=== PATIENT | female | born 1975 | race Caucasian/White ===

== ENCOUNTER 2022-07-29 13:34 | Inpatient (IN) | payer MEDICAID ==
[~2022-07-29] VITALS: Ht 162.6 cm; Wt 72.6 kg
[2022-07-29 13:39] VITALS: BP 140/90
--- NOTE | 2022-07-29 14:08 | NUR ---
AWAKE, ALERT X 4 ON ARRIVAL, EXPIRATORY WHEEZE ON AUSCULTATION. SPEAKS FULL SENTENCES
[2022-07-29 14:21] LABS: BASOPHILS # (AUTO) 0.1 K/uL (0.00-0.22); EOSINOPHILS # (AUTO) 1.4 K/uL (0-0.4); EOSINOPHILS % (AUTO) 14.8 % (0.0-4.0); HEMATOCRIT 42.2 % (36-48); HEMOGLOBIN 14.3 g/dL (12.0-16.0); LYMPHOCYTES # (AUTO) 3.6 K/uL (2.5-16.5); LYMPHOCYTES % (AUTO) 38.8 % (20.5-51.1); MEAN CORPUSCULAR HEMOGLOBIN 27 pg (27-31); MEAN CORPUSCULAR HGB CONC 34 g/dL (33-37); MEAN CORPUSCULAR VOLUME 81.1 fL (80-94); MONOCYTES # (AUTO) 0.4 K/uL (0.8-1.0); MONOCYTES % (AUTO) 4.8 % (1.7-9.3); NEUTROPHILS # (AUTO) 3.7 K/uL (1.8-7.7); NEUTROPHILS % (AUTO) 40.6 % (42.2-75.2); PLATELET COUNT (AUTO) 253 K/uL (140-450); WHITE BLOOD COUNT (AUTO) 9.2 K/uL (4.8-10.8)
[2022-07-29 14:35] LABS: ALBUMIN 4.4 g/dL (3.4-5.0); ANION GAP 16.7 (8-16); CARBON DIOXIDE 24.6 mmol/L (21-32); CREATININE 0.9 mg/dL (0.6-1.3); POTASSIUM 3.3 mmol/L (3.5-5.1); TOTAL BILIRUBIN 0.5 mg/dL (0.0-1.0)
[2022-07-29] MEDS ORDERED: methylPREDNISolone SS 125 MG/2 ML VIAL IVP ONE (14:40)
[2022-07-29] MEDS ORDERED: ALBUTEROL SULFATE/IPRATROPIU 3 ML SOL IH ONE ×2 (14:40→17:20)
--- NOTE | 2022-07-29 14:59 | NUR ---
PT WAS SENT TO [facility]ATH. URINE OBTAINED AND SENT TO LAB. PT WAS MEDICATED WITH SOLUMEDROL IVP. RT WAS CALLED TO BEDSIDE FOR BREATHING TX.
--- NOTE | 2022-07-29 16:44 | NUR ---
PT STATED FEELING MUCH BETTER AFTER BREATHING TX.
--- NOTE | 2022-07-29 17:38 | NUR ---
BREATHING TX ONE MORE TIME BEDSIDE.
[2022-07-29 19:10] LABS: APPEARANCE,URINE CLEAR (CLEAR); BILIRUBIN,URINE NEGATIVE (NEGATIVE); BLOOD, URINE TRACE-I (NEGATIVE); COLOR,URINE YELLOW (YELLOW); LEUKOCYTE ESTERASE ,URINE NEGATIVE (NEGATIVE); NITRITE, URINE NEGATIVE (NEGATIVE); PH,URINE 5.5 (5.0-9.0); UGLUCOSE NEGATIVE (NEGATIVE)
[2022-07-29] MEDS ORDERED: NACL 0.9% 2,000 ML IV ONE (19:15)
--- NOTE | 2022-07-29 19:30 | NUR ---
REPORT RECEIVED FROM OUTGOING RN FOR CONTINUITY OF CARE.
[2022-07-29 19:33] LABS: CALCIUM OXALATE CRYSTALS,UR 0-10 /HPF (None Seen)
[2022-07-29] MEDS ORDERED: cefTRIAXone 1,000 MG VIAL ONE (19:37)
--- NOTE | 2022-07-29 20:34 | NUR ---
REPORT GIVEN TO GLORIA WITT. PATIENT PENDING TRANSFER TO [facility]. ALL BELONGINGS SENT WITH PATIENT.
--- NOTE | 2022-07-29 20:40 | NUR ---
PT TRANSPORTED FROM ER VIA GURNEY. PT IS AAOX4. NOT IN ANY RESPIRATORY DISTRESS. ON RA SATING 94%. PT HAS LEFT HAND 20 GAUGE SALINE LOCK. PT DENIES ANY PAIN. EDUCATED PT FOAMING MACHINE OPERATOR LIGHT SYSTEM AND ROOM ENVIRONMENT. POC DISCUSSED. WILL CONTINUE TO MONITOR THE PT.
[2022-07-29 20:45] VITALS: BP 129/81
[2022-07-29] MEDS ORDERED: LORazepam 2 MG/ML VIAL IVP PRN (20:45)
[2022-07-29] MEDS ORDERED: POTASSIUM CHLORIDE 10 MEQ TABER PO PRN (20:45)
[2022-07-29] MEDS ORDERED: MAG SULF 2000 MG/WATER PREMIX 50 ML IV PRN (20:45)
[2022-07-29] MEDS ORDERED: DOCUSATE SODIUM 100 MG GELCAP PO PRN (20:45)
[2022-07-29] MEDS ORDERED: ONDANSETRON 4 MG/2 ML VIAL IVP PRN (20:45)
[2022-07-29] MEDS ORDERED: ALBUTEROL SULFATE/IPRATROPIU 3 ML SOL IH PRN (20:45)
[2022-07-29] MEDS ORDERED: MORPHINE SULFATE 2 MG/ML SYR IVP PRN (20:45)
[2022-07-29] MEDS: ZOLPIDEM 10 MG TAB PO PRN (21:51)
[2022-07-29] MEDS: ACETAMINOPHEN 325 MG TAB PO PRN (21:51)
[2022-07-29] MEDS: predniSONE 10 MG TAB PO SCH (21:51)
--- NOTE | 2022-07-29 21:51 | NUR ---
SCHEDULE MEDICATIONS GIVEN. PT COMPLAIN OF PINEDA, TYLENOL WAS GIVEN. PT WANTED SLEEP MED AND AMBIEN WAS GIVEN. K-DUR WAS GIVEN FOR LOW POTASSIUM. NO ADVERSE REACTION NOTED. WILL CONTINUE TO MONITOR THE PT.
--- NOTE | 2022-07-30 03:40 | NUR ---
VITAL SIGNS TAKEN AND STABLE. NOT IN ANY DISTRESS. PT HAS NO COMPLAINS AT THIS TIME. WILL CONTINUE TO MONITOR THE PT.
[2022-07-30 04:00] VITALS: BP 125/73
--- NOTE | 2022-07-30 07:15 | NUR ---
ENDORSED PT TO DAY SHIFT RN FOR CONTINUITY OF CARE. PT IS STABLE.
--- NOTE | 2022-07-30 07:15 | NUR ---
RECEIVED REPORT FROM NIGHTSHIFT NURSE NATALIE FOR CONTINUITY OF CARE. PT IN STABLE CONDITION, CURRENTLY SLEEPING, NO SIGNS OF PAIN OR DISTRESS NOTED AT THIS TIME.
--- NOTE | 2022-07-30 07:40 | NUR ---
RECEIVED CALL FROM LAB FOR CRITICAL LAB VALUE LACTIC ACID 3.4. NOTIFIED DR. SORTO, AWAITING ORDERS.
[2022-07-30 08:00] VITALS: BP 114/70
--- NOTE | 2022-07-30 08:00 | NUR ---
NO NEW ORDERS RECEIVED FOR LACTIC ACID 3.4.
[2022-07-30] MEDS: ACETAMINOPHEN 325 MG TAB PO PRN ×2 (08:25→15:55)
[2022-07-30] MEDS: predniSONE 10 MG TAB PO SCH (08:25)
--- NOTE | 2022-07-30 08:25 | NUR ---
DR. SORTO IN TO SEE PT, MEDICATED WITH PRN TYLENOL FOR HEADACHE PAIN 07/21. NEW ORDERS RECEIVED FOR SILVER CLEANER CONSULT FOR WHEEZING AND SOB.
--- NOTE | 2022-07-30 09:10 | NUR ---
PATIENT HAS BEEN SCREENED AND CATEGORIZED LOW NUTRITION RISK. PATIENT WILL BE SEEN WITHIN 7 DAYS OF ADMISSION. 08/05/22 REVIEWED BY ANDRÉS ZAVALA RD
--- NOTE | 2022-07-30 11:42 | NUR ---
DC [age] YRS OLD FEMALE PATIENT WAS ADMITTED FROM HOME WITH A DX OF ACUTE BRONCHITIS. PATIENT HAS A HX OF COVID. CXR SHOWED CXR SHOWED NO ACUTE CARDIOPULMONARY DISEASE. RAPID COVID TEST NEGATIVE. ADMINISTERED IVF, IV ABX ROCEPHIN. CONSULTED WITH PULMO. DC PLAN TO GO HOME WHEN STABLE. CM TO FOLLOW
--- NOTE | 2022-07-30 12:26 | NUR ---
PT REPORTED DIFFICULTY BREATHING, CALLED RT TO ROOM FOR PRN BREATHING TX. PT HAD LABORED BREATHING, COARSE AND WET LUNG SOUNDS AND PRODUCTIVE COUGH WITH CLEAR WHITE SPUTUM. NOTIFIED DR. TOVAR, BREATHING TX WERE CHANGED TO SCHEDULED Q4H AND PRN Q2H. Addendum: 07/30/22 at 1538 by Gunjan Lebron RN SPO2 100% ON 6L VIA FACEMASK FOR COMFORT WHILE RT PREPARES MEDICATIONS.
--- NOTE | 2022-07-30 12:40 | NUR ---
PT REPORTS EASE OF BREATHING IMPROVED, SPO2 97% ON ROOM AIR. WHEEZING AND RHONCHI STILL NOTED, NO COARSE SOUNDS OR COUGH NOTED.
[2022-07-30] MEDS: ALBUTEROL SULFATE/IPRATROPIU 3 ML SOL IH PRN ×2 (13:55→21:08)
--- NOTE | 2022-07-30 14:34 | NUR ---
LAB REPORTED CRITICAL VALUE LACTIC ACID 3.8. NO NEW ORDERS RECEIVED FROM DR. SORTO.
[2022-07-30] MEDS: ALBUTEROL SULFATE/IPRATROPIU 3 ML SOL IH SCH ×3 (15:34→22:50)
--- NOTE | 2022-07-30 15:57 | NUR ---
PT COMPLAINED OF HEADACHE PAIN 5/10. MEDICATED PRN TYLENOL.
[2022-07-30 16:00] VITALS: BP 119/68
--- NOTE | 2022-07-30 19:01 | NUR ---
[facility] FOR CONTINUITY OF CARE. PT IN STABLE CONDITION.
--- NOTE | 2022-07-30 19:30 | NUR ---
RECEIVED REPORT FROM DAY RN FOR CONTINUITY OF CARE. PT IS AWAKE, LAERT AND ORIENTED X 4. ON ROOM AIR.PT IN STABLE CONDITION. NO SIGNS OF PAIN OR DISTRESS NOTED AT THIS TIME.ALL PRECAUTIONS IN PLACE. CALL LIGHT WITHIN REACH. WILL CONTINUE TO MONITOR.
[2022-07-30 20:00] VITALS: BP 115/75
--- NOTE | 2022-07-30 21:15 | NUR ---
PT COMPLAINED OF SHORTNESS OF BREATH. RT CALLED TO BEDSIDE FOR PRN BREATHING TREATMENT.
[2022-07-30] MEDS: ZOLPIDEM 10 MG TAB PO PRN (21:19)
--- NOTE | 2022-07-30 22:50 | NUR ---
GAVE PT PRN TX TO PT AT 9PM. PT RELIEVED SOB AND FELL ASLEEP SO DID NOT GIVE 11PM TX. PT BS CLEAR. NO SOB
[2022-07-31] MEDS: ALBUTEROL SULFATE/IPRATROPIU 3 ML SOL IH SCH ×6 (03:00→22:46)
[2022-07-31 04:00] VITALS: BP 90/70
--- NOTE | 2022-07-31 07:04 | NUR ---
PT RECEIVED ON RA, SLEEPING, SATURATION GREATER THAN 92%, AND NO DISTRESS NOTED. PT WAS LAYING DOWN WHEN HEAD RAISED TO GIVE TREATMENT HR SPIKED TO 105. BY THE END OF TXN HR DECREASED BACK TO 75. POST TXN RETURNED PT TO LAYING ALMOST FLAT (HEAD RAISED 10-15 DEGREES) AND PT RETURNED TO SLEEP. RESTING COMFORTABLY AND NO DISTRESS NOTED. WILL CONTINUE TO MONITOR PT.
--- NOTE | 2022-07-31 07:18 | NUR ---
PT IS STABLE. NO ACUTE EVENT THROUGHOUT THE NIGHT. NO S/SX OF DISTRESS AT THIS MOMENT. NO COMPLAINS OF PAIN. ALL NEEDS MET.ALL PRECAUTIONS IN PLACE. CALL LIGHT WITHIN REACH. WILL ENDORSE TO DAY SHIFT NURSE.
--- NOTE | 2022-07-31 07:20 | NUR ---
RECEIVED PT FROM YOUTH PROGRAM DIRECTOR NURSE FOR CONTINUITY OF CARE. PT IS AWAKE, RECEIVING BREATHING TREATMENT AT BEDSIDE. RESPIRATIONS EVEN AND UNLABORED ON RA. SKIN WARM AND DRY. IV ON L HAND 20G. ALL SAFETY PRECAUTIONS IN PLACE. CALL LIGHT WITHIN REACH.
[2022-07-31 07:21] LABS: BASOPHILS # (AUTO) 0.1 K/uL (0.00-0.22); BASOPHILS % (AUTO) 0.6 % (0.0-2.0); EOSINOPHILS # (AUTO) 0.2 K/uL (0-0.4); EOSINOPHILS % (AUTO) 1.7 % (0.0-4.0); HEMATOCRIT 40.3 % (36-48); HEMOGLOBIN 13.4 g/dL (12.0-16.0); LYMPHOCYTES % (AUTO) 32.1 % (20.5-51.1); MEAN CORPUSCULAR HEMOGLOBIN 27 pg (27-31); MEAN CORPUSCULAR HGB CONC 33 g/dL (33-37); MEAN CORPUSCULAR VOLUME 82.1 fL (80-94); MONOCYTES # (AUTO) 0.6 K/uL (0.8-1.0); MONOCYTES % (AUTO) 5.1 % (1.7-9.3); NEUTROPHILS # (AUTO) 7.6 K/uL (1.8-7.7); NEUTROPHILS % (AUTO) 60.5 % (42.2-75.2); PLATELET COUNT (AUTO) 276 K/uL (140-450); RED BLOOD CELL COUNT(AUTO) 4.91 MIL/uL (4.20-5.40); RED CELL DISTRIBUTION WIDTH 14.2 % (11.6-13.7); WHITE BLOOD COUNT (AUTO) 12.6 K/uL (4.8-10.8)
[2022-07-31 07:43] LABS: ANION GAP 15.3 (8-16); CARBON DIOXIDE 24.7 mmol/L (21-32); CREATININE 0.8 mg/dL (0.6-1.3)
[2022-07-31 08:00] VITALS: BP 100/60
--- NOTE | 2022-07-31 08:00 | NUR ---
Patient's Plan of Care was discussed and reviewed with GERENTOLOGICAL PHYSIOTHERAPIST: CROW DEAL
[2022-07-31] MEDS: DEXAMETHASONE 4 MG TAB PO SCH (08:33)
[2022-07-31] MEDS ORDERED: DEXAMETHASONE 4 MG/ML VIAL IVP SCH (09:00)
--- NOTE | 2022-07-31 15:00 | NUR ---
PT WAS ASLEEP . WHEN WOKEN SHE REFUSED MED. SLEEP WAS MORE IMPORTANT. SHE IMMEDIATELY FELL BACK TO SLEEP. RESTING COMFORTABLY, LITTLE DISTRESS NOTED. WILL CONTINUE TO MONITOR PT.
[2022-07-31 16:00] VITALS: BP 106/58
--- NOTE | 2022-07-31 19:12 | NUR ---
ENDORSED PT TO PHYSICIAN PRACTICE MARKET MANAGER NURSE FOR CONTINUITY OF CARE. PT IS STABLE.
--- NOTE | 2022-07-31 19:20 | NUR ---
RECEIVED PT FROM AM NURSE FOR CONTINUITY OF CARE. PT IS STABLE
[2022-07-31 20:00] VITALS: BP 112/71
[2022-07-31] MEDS: ZOLPIDEM 10 MG TAB PO PRN (20:26)
--- NOTE | 2022-08-01 01:00 | NUR ---
PATIENT SLEEPING COMFORTABLY IN BED, NO DISTRESS NOTED
[2022-08-01] MEDS: ALBUTEROL SULFATE/IPRATROPIU 3 ML SOL IH SCH ×3 (02:40→11:19)
[2022-08-01 07:04] LABS: BASOPHILS % (AUTO) 0.2 % (0.0-2.0); EOSINOPHILS % (AUTO) 0.2 % (0.0-4.0); HEMATOCRIT 40.8 % (36-48); HEMOGLOBIN 13.6 g/dL (12.0-16.0); LYMPHOCYTES % (AUTO) 22.1 % (20.5-51.1); MEAN CORPUSCULAR HEMOGLOBIN 27 pg (27-31); MEAN CORPUSCULAR HGB CONC 33 g/dL (33-37); MEAN CORPUSCULAR VOLUME 81.5 fL (80-94); MONOCYTES # (AUTO) 0.8 K/uL (0.8-1.0); MONOCYTES % (AUTO) 5.7 % (1.7-9.3); NEUTROPHILS # (AUTO) 9.6 K/uL (1.8-7.7); NEUTROPHILS % (AUTO) 71.8 % (42.2-75.2); PLATELET COUNT (AUTO) 293 K/uL (140-450); RED CELL DISTRIBUTION WIDTH 14.2 % (11.6-13.7); WHITE BLOOD COUNT (AUTO) 13.4 K/uL (4.8-10.8)
--- NOTE | 2022-08-01 07:05 | NUR ---
ENDORSED PT TO AM NURSE FOR CONTINUITY OF CARE.PT IS STABLE
--- NOTE | 2022-08-01 07:10 | NUR ---
RECIEVED APTIENT FROM PM NURSE FOR CONTINUATION OF CARE. PATIENT SEEN ON BED ASLEEP, NORMAL RISE AND FALL OF CHEST. CAREPLAN REVIEWED, PATIENT CARE RESUMED.
--- NOTE | 2022-08-01 07:15 | NUR ---
PT SLEEPING COMFORTABLY. NO DISTRESS. WILL COME BACK FOR TREATMENT LATER.
[2022-08-01 07:17] LABS: ANION GAP 14.8 (8-16); CARBON DIOXIDE 26.6 mmol/L (21-32); CREATININE 0.8 mg/dL (0.6-1.3); POTASSIUM 4.4 mmol/L (3.5-5.1)
[2022-08-01 08:00] VITALS: BP 107/71
[2022-08-01] MEDS: DEXAMETHASONE 4 MG TAB PO SCH (09:25)
[2022-08-01] MEDS ORDERED: METH4TAB1 PO (11:59)
[2022-08-01] MEDS ORDERED: DEXT-430 PO (11:59)
[2022-08-01] MEDS ORDERED: ALBU3SOL28 IH (11:59)
[2022-08-01] MEDS ORDERED: AZIT250T4 PO (11:59)
[2022-08-01 12:18] VITALS: BP 107/71
--- NOTE | 2022-08-01 13:26 | NUR ---
PT REFUSED LAST TREATMENT. SAID SHES FEELING A LITTLE BETTER. SATURATION IS IN THE HIGH 90S, BREATH SOUNDS; WHEEZE. WILL CONTINUE TO MONITOR
== END 2022-08-01 13:45 | disposition home or self-care (01) | DRG 133 ==
LOC: MED 13:34 → MTU 20:07
PROVIDERS: ADMIT General Practice; ATTEND General Practice
DX: J96.00 Acute respiratory failure, unspecified whether with hypoxia or hypercapnia (principal); E87.20 Acidosis, unspecified; R65.10 Systemic inflammatory response syndrome (SIRS) of non-infectious origin without acute organ dysfunction; E88.09 Other disorders of plasma-protein metabolism, not elsewhere classified; J44.0 Chronic obstructive pulmonary disease with (acute) lower respiratory infection; J44.1 Chronic obstructive pulmonary disease with (acute) exacerbation; J20.9 Acute bronchitis, unspecified; E87.6 Hypokalemia; R74.01 Elevation of levels of liver transaminase levels; N39.0 Urinary tract infection, site not specified; T38.0X5A Adverse effect of glucocorticoids and synthetic analogues, initial encounter; D72.829 Elevated white blood cell count, unspecified; Z20.822 Contact with and (suspected) exposure to COVID-19; Y92.89 Other specified places as the place of occurrence of the external cause; Z86.16 Personal history of COVID-19; Z87.891 Personal history of nicotine dependence; Z98.891 History of uterine scar from previous surgery
CPT/HCPCS: 36415; 71045; 80048; 80053; 81001; 83036; 83605; 83735; 83880; 84484; 85025; 87040; 87081; 87086; 93005; 94640; 96374; 96375; 99285; J0696; J2930; J7060; J7512; Q0092